=== PATIENT | male | born 1985 | race Caucasian/White ===

== ENCOUNTER 2017-06-12 14:51 | Emergency (ER) | payer SELFPAY ==
--- NOTE | 2017-06-12 15:09 | EDPHY ---
H & P Stated Complaint: L hand lac, hand on glass Source: Patient - Personal History Current Tetanus/Diphtheria Vaccine: Yes Current Tetanus Diphtheria and Acellular Pertussis (TDAP): Yes Tetanus Vaccine Date: 2015 - Medical/Surgical History Hx Asthma: No Hx Chronic Respiratory Disease: No Hx Diabetes: No Hx Cardiac Disease: No Hx Renal Disease: No Hx Cirrhosis: No Hx Alcoholism: No Hx HIV/AIDS: No Hx Splenectomy or Spleen Trauma: No Other PMH: denies - Social History Smoking Status: Current every day smoker Alcohol Use: None Drug Use: None HPI/ROS: CHIEF COMPLAINT: Left hand injury HISTORY OF PRESENT ILLNESS: The patient is 31-year-old male, brought in by EMS, presenting with a left hand injury. The patient was on a ladder, 5 feet above the ground, painting above a window. The ladder came out from under him and he put his hand through the window to try and catch himself. The patient has multiple lacerations to the third and fifth digits. He is unable to move his pinky finger. The patient received Fentanyl prior to arrival. Patient is right hand dominant. He denies other injuries or fall. REVIEW OF SYSTEMS: A ten point review of systems was performed and is negative with the exception of the items mentioned in the HPI. (Dorene Taylor) - Social History Additional Social History: [place] [employer]. (Dorene Taylor) - Physical Exam Exam: General Appearance: Alert. Vital signs reviewed. Head: Normocephalic, atraumatic. Eyes: Pupils equal and round, no conjunctival injection, no discharge. Anicteric. ENT, Mouth: Mucous membranes are moist, no oropharyngeal erythema or edema. Neck: Nontender over cervical spine in the midline. Respiratory: Lungs are clear to auscultation; no wheezes, rales, or rhonchi. Cardiovascular: Regular rate and rhythm; no murmur, rub, or gallop. Gastrointestinal: Abdomen is soft and nontender, no masses or organomegaly, bowel sounds normal. Skin: Warm and dry, no rashes on exposed skin, normal color. Back: Nontender to palpation over the thoracolumbar spine. Extremities: Third finger: Palmar aspect has laceration at the metacarpal proximal phalangeal joint extending across the base of the finger. Normal flexion/extension. Fifth digit: There are two lacerations to the palmar aspect of the finger. See drawing. There is alaceration that is 4cm horizontally along the medial aspect of the finger and extends 3cm vertically onto the palm at the distal flexor crease. Unable to flex fifth digit. Decreased sensation over fifth digit. Full extension of 2nd, 3rd, and 4th digits--normal light touch sensation over these digits. Pulses: 2+ left radial pulse. Neurological: Alert and oriented. Moving all four extremities easily and equally. Psychiatric: Normal affect. (Dorene Taylor) Constitutional: Initial Vital Signs Temperature (C) 36.7 C 06/12/17 14:59 Heart Rate 82 06/12/17 14:59 Respiratory Rate 18 06/12/17 14:59 Blood Pressure 126/74 H 06/12/17 14:59 O2 Sat (%) 95 06/12/17 14:59 O2 Delivery Mode Room Air Allergies/Adverse Reactions: No Known Allergies Allergy (Unverified 06/12/17 14:59) Home Medications: Medication Instructions Recorded NK [No Known Home Meds] 06/12/17 ED Images - Extremities Hands Back Left/Right: 1 - laceration, wraps around to palmar aspect of hand Hands Front Left/Right: 1 - laceration 2 - laceration 3 - laceration 4 - laceration, continguous with #3 Medical Decision Making - Diagnostics Imaging: Discussed imaging studies w/ call circuit worker Radiologist, I viewed and interpreted images myself Procedures: Procedure: Laceration repair #1 Verbal consent was obtained from the patient. 4cm horizontally 3cm vertical laceration on the left pinky. 0.5% bupivacaine use for digital block. The wound was irrigated. The wound was repaired 5-0 Prolene #20 sutures placed The procedure was performed by myself. A dressing was applied by our EMT. Laceration repair #2 1cm laceration on the base of middle finger. 0.5% bupivacaine used for digital block. The wound was irrigated. The wound was repaired using 4-0 chromic gut subcuticular sutures #2 placed, 5-0 Prolene #10 sutures placed. The procedure was performed by myself. A dressing was applied by our EMT. ( Jazmin Ayoub) ED Course/Re-evaluation: Patient presents with multiple lacerations to the palmar aspect of his left hand. He has no flexion to the pinky finger. X-ray imaging is negative for fracture. Possible foreign body seen in the wound. I performed a digital block of the third finger using Xylocaine 1%. Tetanus status was addressed. Plan to have the wound irrigated. The PA, Jazmin Ayoub, performed the laceration repair- -loosely approximating the fifth digit laceration, as it will require surgery. Hand surgeon was paged. There is a flexor tendon injury and possiby a nerve injury (sensation is decreased). These will be addressed surgically. Patient will call his office tomorrow to arrange. Wounds copiously irrigated. No glass or other FB identified. No fracture on Xray. I spoke with who recommends loose approximation of fifth digit/palm laceration and splinting with fingers in flexion. Procedure: Splint placement. A volar splint was applied to the left hand by the tech. After application of the splint I returned and re-examined the patient. The splint was adequately immobilizing the joint and distal to the splint the patient's circulation and sensation was intact. Left fifth digit in flexion. (Dorene Taylor) Differential Diagnosis: DDX includes but is not limited to fracture, dislocation, laceration, tendon injury, nerve injury, vascular injury, retained foreign body. (Dorene Taylor) - Data Points Medications Given: Discontinued Medications Fentanyl (Sublimaze) 25 mcg IVP EDNOW ONE Stop: 06/12/17 18:38 Last Admin: 06/12/17 18:38 Dose: 25 mcg Hydromorphone HCl (Dilaudid) 1 mg IVP EDNOW ONE Stop: 06/12/17 17:01 Last Admin: 06/12/17 18:38 Dose: 1 mg Hydromorphone HCl (Dilaudid) 1 mg IVP EDNOW ONE Stop: 06/12/17 19:51 Last Admin: 06/12/17 20:00 Dose: 1 mg Oxycodone/Acetaminophen (Percocet 5/325) 1 tab PO EDNOW ONE Stop: 06/12/17 17:56 Last Admin: 06/12/17 17:55 Dose: 1 tab Departure - Departure Disposition: Home, Routine, Self-Care Clinical Impression: Hand laceration involving tendon Qualifiers: Encounter type: initial encounter Laterality: left Qualified Code(s): S61.412A - Laceration without foreign body of left hand, initial encounter; S66.922A - Laceration of unspecified muscle, fascia and tendon at wrist and hand level, left hand, initial encounter Condition: Good Instructions: Care For Your Stitches (ED), Laceration (ED), Tendon Laceration ( ED) Additional Instructions: You have been referred to the salesperson sewing machines hand surgeon below. Please call tomorrow to arrange a followup appointment. Call first thing in the morning. Let the office staff know that you have a tendon injury and that Dr. Kidd will be repairing it surgically. Take 600mg Ibuprofen every 6-8 hours while pain persists. Have your sutures removed from your third finger in 10 days. Suture removal is complimentary in the Emergency Department with your visit today. Return to the Emergency Department for fever, redness, discharge from wound, increasing pain or other worsening of condition. Referrals: Ranjith Kidd MD [Medical Doctor] - As per Instructions Report Scribed for: Dorene Taylor Report Scribed by: Mary Carmen Mendoza Date of Report: 06/12/17 Time of Report: 15:56 Physician Review and Approval Statement: 06/12/17 15:09 Portions of this note were transcribed by the center medical and lab director. I, Dr. Dorene Taylor, personally performed the history, physical exam, and medical decision- making; and confirmed the accuracy of the information in the transcribed note. ( Dorene Taylor)
[2017-06-12] MEDS ORDERED: HYDROmorphONE/DILAUDID 1 MG/ML SYR ONE (15:40)
[2017-06-12 16:40] VITALS: RESP 16
[2017-06-12] MEDS ORDERED: HYDROmorphONE/DILAUDID 1 MG/ML SYR IVP ONE ×2 (17:00→19:50)
[2017-06-12] MEDS ORDERED: OXYCODONE/APAP 5/325 TAB ONE (17:48)
[2017-06-12] MEDS ORDERED: OXYCODONE/APAP 5/325 TAB PO ONE (17:55)
[2017-06-12] MEDS ORDERED: fentaNYL 100 MCG/2 ML INJ ONE (18:20)
[2017-06-12] MEDS ORDERED: fentaNYL 100 MCG/2 ML INJ IVP ONE (18:37)
[2017-06-12 20:39] VITALS: BP 114/53; PULSE 75; TEMP 98.2; O2SAT 94
== END 2017-06-12 20:25 | disposition home or self-care (01) ==
LOC: EDBD
PROC: 0HQGXZZ Repair Left Hand Skin, External Approach (ICD-10-PCS; principal; 2017-06-12)
DX: S66.922A Laceration of unspecified muscle, fascia and tendon at wrist and hand level, left hand, initial encounter (principal); F17.200 Nicotine dependence, unspecified, uncomplicated; W26.8XXA Contact with other sharp object(s), not elsewhere classified, initial encounter; Y93.89 Activity, other specified
CPT/HCPCS: 96374; J1170; J3010

== ENCOUNTER 2017-06-16 12:36 | Inpatient (IN) | payer SELFPAY ==
--- NOTE | 2017-06-16 12:43 | EDPHY ---
H & P - Personal History Tetanus Vaccine Date: 2015 - Medical/Surgical History Hx Asthma: No Hx Chronic Respiratory Disease: No Hx Diabetes: No Hx Cardiac Disease: No Hx Renal Disease: No Hx Cirrhosis: No Hx Alcoholism: No Hx HIV/AIDS: No Hx Splenectomy or Spleen Trauma: No Other PMH: denies - Social History Smoking Status: Current every day smoker Time Seen by Provider: 06/16/17 12:40 HPI/ROS: Chief Complaint: Chest pain HPI: 32-year-old male developed chest pain while being arrested at [facility]. Patient states he got very anxious while interact with the police and developed some chest discomfort. Is consistent with prior episodes of anxiety in the past. Patient also states that his girlfriend called police held in that he was suicidal. Patient was placed on M1 hold by the police. Patient was seen here recently after sustaining a laceration to the palm of his hand which required significant repair with resulting tendon damage. Patient denies any new changes with this. He has been taking oxycodone for the pain and has been taking his antibiotic. Denies any fevers or chills. No new redness or discharge. Currently is feeling a very anxious and agitated. ROS: 10 point Review of Systems is negative except as noted in the HPI. PMH: Anxiety, depression Social History: Denies smoking, denies alcohol, no recreational drug use Family History: non-contributory Physical Exam: Gen: Awake, Alert, agitated, pressured speech HEENT: Nose: no rhinorrhea Eyes: PERRLA, EOMI Mouth: Moist mucosa Neck: Supple, no JVD Chest: nontender, lungs clear to auscultation Heart: S1, S2 normal, no murmur Abd: Soft, non-tender, no guarding Back: no CVA tenderness, no midline tenderness Ext: no edema, left hand is in a splint, no erythema, sensations intact Skin: no rash Neuro: CN II-XII intact, Sensation grossly intact, Strength 5/5 in bilateral upper and lower extremities (Kiran Da Silva) Allergies/Adverse Reactions: No Known Allergies Allergy (Unverified 06/12/17 14:59) Home Medications: Medication Instructions Recorded NK [No Known Home Meds] 06/12/17 Medical Decision Making ED Course/Re-evaluation: Patient was medically cleared. No evidence of acute cardiopulmonary process. He is very anxious requires Ativan and also required some Zyprexa here for his agitation. Patient will be seen by mental health for evaluation. IV was anxiety is secondary to his interaction with police. Patient is signed out to Dr. Cao pending mental health evaluation. (Kiran Da Silva) Other Provider: I assumed care of the patient at 14:30. The patient became quite agitated. We verbally attempted to calmed the patient down however this was not successful. The patient received an additional 5 mg of IV Zyprexa. I have medically cleared the patient for psychiatric evaluation. (Eber Cao) - Data Points Laboratory Results: Laboratory Results 06/16/17 12:45 06/16/17 12:45 06/16/17 06/16/17 06/16/17 12:47 12:45 12:45 WBC 8.82 10^3/uL 10^3/uL (3.80-9.50) RBC 4.58 10^6/uL 10^6/uL (4.40-6.38) Hgb 14.2 g/dL g/dL (13.7-17.5) Hct 41.8 % % (40.0-51.0) MCV 91.3 fL fL (81.5-99.8) MCH 31.0 pg pg (27.9-34.1) MCHC 34.0 g/dL g/dL (32.4-36.7) RDW 12.9 % % (11.5-15.2) Plt Count 270 10^3/uL 10^3/uL (150-400) MPV 9.9 fL fL (8.7-11.7) Neut % (Auto) 65.1 % % (39.3-74.2) Lymph % (Auto) 20.5 % % (15.0-45.0) Payette % (Auto) 11.7 % % (4.5-13.0) Eos % (Auto) 1.5 % % (0.6-7.6) Baso % (Auto) 1.0 % % (0.3-1.7) Nucleat RBC Rel Count 0.0 % % (0.0-0.2) Absolute Neuts (auto) 5.74 10^3/uL 10^3/uL (1.70-6.50) Absolute Lymphs (auto) 1.81 10^3/uL 10^3/uL (1.00-3.00) Absolute Monos (auto) 1.03 10^3/uL H 10^3/uL (0.30-0.80) Absolute Eos (auto) 0.13 10^3/uL 10^3/uL (0.03-0.40) Absolute Basos (auto) 0.09 10^3/uL 10^3/uL (0.02-0.10) Absolute Nucleated RBC 0.00 10^3/uL 10^3/uL (0-0.01) Immature Gran % 0.2 % % (0.0-1.1) Immature Gran # 0.02 10^3/uL 10^3/uL (0.00-0.10) Sodium 140 mEq/L mEq/L (134-144) Potassium 3.8 mEq/L mEq/L (3.5-5.2) Chloride 105 mEq/L mEq/L (97-110) Carbon Dioxide 17 mEq/l L mEq/l (22-31) Anion Gap 18 mEq/L H mEq/L (8-16) BUN 14 mg/dL mg/dL (7-23) Creatinine 0.9 mg/dL mg/dL (0.7-1.3) Estimated GFR > 60 Glucose 79 mg/dL mg/dL (70-100) Calcium 9.7 mg/dL mg/dL (8.5-10.4) Urine Opiates Screen NEGATIVE (NEGATIVE) Urine Barbiturates NEGATIVE (NEGATIVE) Ur Phencyclidine Scrn NEGATIVE (NEGATIVE) Ur Amphetamine Screen NEGATIVE (NEGATIVE) U Benzodiazepines Scrn NON-NEGATIVE H (NEGATIVE) Urine Cocaine Screen NEGATIVE (NEGATIVE) U Marijuana (THC) Screen NON-NEGATIVE H (NEGATIVE) Ethyl Alcohol < 10 mg/dL mg/dL (0-10) Medications Given: Discontinued Medications Lorazepam (Ativan Injection) 1 mg IVP EDNOW ONE Stop: 06/16/17 13:28 Last Admin: 06/16/17 13:28 Dose: 1 mg Lorazepam (Ativan Injection) 1 mg IVP EDNOW ONE Stop: 06/16/17 14:18 Last Admin: 06/16/17 14:18 Dose: 1 mg Nicotine (Nicoderm Cq) 21 mg TD EDNOW ONE Stop: 06/16/17 14:35 Last Admin: 06/16/17 14:38 Dose: 21 mg Olanzapine (Zyprexa Im Injection) 5 mg IM EDNOW ONE Stop: 06/16/17 15:21 Last Admin: 06/16/17 15:22 Dose: 5 mg Oxycodone/Acetaminophen (Percocet 5/325) 1 tab PO EDNOW ONE Stop: 06/16/17 13:28 Last Admin: 06/16/17 13:28 Dose: 1 tab Departure - Departure Referrals: Patient,NotPresent [Primary Care Provider] - As per Instructions
[2017-06-16 12:58] LABS: % IMMATURE GRANULYOCYTES 0.2 % (0.0-1.1); ABSOLUTE IMMATURE GRANULOCYTES 0.02 10^3/uL (0.00-0.10); ADD DIFF? NO; ADD MORPH? NO; ADD SCAN? NO; ATYPICAL LYMPHOCYTE FLAG 10 (0-99); FRAGMENT RBC FLAG 0 (0-99); HEMATOCRIT 41.8 % (40.0-51.0); HEMOGLOBIN 14.2 g/dL (13.7-17.5); LEFT SHIFT FLG 0 (0-99); LIPEMIA HEMOLYSIS FLAG 90 (0-99); MEAN CELL VOLUME 91.3 fL (81.5-99.8); MEAN PLATELET VOLUME 9.9 fL (8.7-11.7); PLATELET CLUMPS FLAG 10 (0-99); PLATELET COUNT 270 10^3/uL (150-400); RED BLOOD CELL COUNT 4.58 10^6/uL (4.40-6.38); RED CELL DISTRIBUTION WIDTH 12.9 % (11.5-15.2)
--- NOTE | 2017-06-16 12:58 | CPEKG ---
Heart Rate: 70 RR Interval: 857 P-R Interval: 172 QRSD Interval: 104 QT Interval: 416 QTC Interval: 449 P Rosman: 72 QRS Rosman: 75 T Wave Rosman: 58 EKG Severity - NORMAL ECG - EKG Impression: SINUS RHYTHM Electronically Signed By: Eber Cao 16-Jun-2017 17:29:58
[2017-06-16] MEDS ORDERED: OXYCODONE/APAP 5/325 TAB ONE (13:15)
[2017-06-16] MEDS ORDERED: LORazepam 2 MG/ML INJ ONE (13:15)
[2017-06-16 13:17] LABS: ANION GAP 18 mEq/L (8-16); CALCIUM 9.7 mg/dL (8.5-10.4); CARBON DIOXIDE 17 mEq/l (22-31); CHLORIDE 105 mEq/L (97-110); CREATININE 0.9 mg/dL (0.7-1.3); ETHANOL SERUM < 10 mg/dL (0-10); GLOMERULAR FILTRATION RATE > 60; GLUCOSE 79 mg/dL (70-100); POTASSIUM 3.8 mEq/L (3.5-5.2); SODIUM 140 mEq/L (134-144)
[2017-06-16] MEDS ORDERED: LORazepam 2 MG/ML INJ IVP ONE ×2 (13:27→14:17)
[2017-06-16] MEDS ORDERED: OXYCODONE/APAP 5/325 TAB PO ONE (13:27)
[2017-06-16] MEDS ORDERED: OLANZapine DISINTEGR 5 MG TAB ONE (14:20)
[2017-06-16] MEDS ORDERED: NICOTINE 21 MG/24 HR PATCH TD ONE (14:34)
[2017-06-16] MEDS ORDERED: OLANZapine 10 MG/2 ML VIAL IM ONE ×2 (15:09→15:20)
[2017-06-16 18:34] LABS: PHENCYCLIDINE URINE BCH < 6 ng/ml (NEGATIVE); PHENCYCLIDINE URINE BCH NEGATIVE (NEGATIVE)
[2017-06-16 18:46] LABS: TETRAHYDROCANNABINOL URINE 427 ng/mL (NEGATIVE)
[2017-06-16] MEDS ORDERED: MAG HYDROX/AL HYDROX/SIMETH 30 ML UDCUP PO PRN (23:50)
[2017-06-16] MEDS ORDERED: MAGNESIUM HYDROXIDE 30 ML UDCUP PO PRN (23:50)
[2017-06-16] MEDS ORDERED: LORazepam 0.5 MG TAB PO PRN (23:50)
[2017-06-17 00:17] VITALS: RESP 14
[2017-06-17] MEDS: NICOTINE POLACRILEX 2 MG GUM B PRN ×5 (08:11→21:44)
[2017-06-17] MEDS: OXYCODONE/APAP 5/325 TAB PO PRN ×4 (08:17→20:27)
[2017-06-17] MEDS: SULFAMETHOX/TMP 800/160 MG 1 TAB PO SCH ×3 (09:47→19:56)
[2017-06-17] MEDS: OLANZapine 5 MG TAB PO PRN (09:51)
[2017-06-17] MEDS: clonazePAM 1 MG TAB PO SCH ×2 (11:01→16:26)
[2017-06-17] MEDS: morphINE SR 15 MG TAB PO SCH ×2 (12:58→20:02)
[2017-06-17] MEDS ORDERED: clonazePAM 1 MG TAB PO SCH (16:00)
--- NOTE | 2017-06-17 16:47 | BAPA ---
[f rep st] ADMISSION PSYCHIATRIC ASSESSMENT DATE OF SERVICE: 06/17/2017 CHIEF COMPLAINT: "My girlfriend is just manipulative, I don't need to be here." HISTORY OF PRESENT ILLNESS: Patient is a 32-year-old male with a previous history of atte ntion deficit hyperactivity disorder. He was brought into the hospital due to his girlfriend's conc gorge for his behaviors. He apparently had been acting erratically, had somehow put his hand through a window and severely cut his arm, causing tendon damage that needs to be surgically repaired. He s tates this was an accident as he slipped off a [employer] ladder and fell through the window though the re is some disagreement about that. He also states that he is being harassed by his landlord but [facility] landlord actually has received a restraining order against him. The details of this are murky as well. The patient is unable to give much detail as he is pressured, distracted and states that ever ything is good because he needs to get out of the hospital. He admits to having nowhere to actually go. He cannot describe the events preceding admission, stating he went to [facility] just to get a pair o f flip-flops and that his girlfriend saw him enter the building and called the police for no reason whatsoever. He states the police then apprehended him, brought him to the hospital on an M1 hold al so for no reason whatsoever. The M1 hold states that the patient was acting erratically and that mu ltiple people called the police, though he adamantly denies this. The patient offers no complaints nor does he identify any goals for any mental health treatment of any kind. He states he takes Klon opin 2 mg 3-4 times a day and that is the only medicine he needs. So far in the emergency departmen t and on our unit, he has been quite agitated, pacing, demanding, yelling at times, is intrusive and irritable but then will calm down. He has been generally verbally redirectable though escalates qu ickly. Additional collateral information from his girlfriend states that he has no history of actua l violence but has been collecting knives recently to protect himself from unseen persons or threats . He did make statements to her also about wanting to buy a gun. He has 1 previous episode of over dosing on Klonopin in a suicide attempt. The patient's girlfriend states that he does abuse medicat ions. PAST PSYCHIATRIC HISTORY: Significant for the previous treatment for ADHD. The patient states that he gets the Klonopin through a primary care physician though is unclear who this is or where they a re. I believe it is in [place]. The patient denies previous psychiatric hospitalization. Though did have 2 substance abuse treatment programs on a residential basis that he apparently did not com plete. ALLERGIES: No known medical allergies. CURRENT MEDICATIONS: Clonazepam 2 mg p.r.n. The patient denies any other medications. PAST MEDICAL HISTORY: Significant for the laceration to his right forearm. The patient denies any other significant history. SOCIAL HISTORY: Patient is single though has a girlfriend. He was living in [place], [place], with hazel ling girlfriend most recently though apparently has been evicted and there is a restraining order agai nst him by the [facility]. It is unclear what the status of his relationship with the girlfriend is t jyoti he states that he has been trying to break up with her for some time because "we are on differ ent spiritual paths." The patient's mother lives in [place] and has given some collateral informa tion and states that she believes he may have been diagnosed with bipolar in the past. SUBSTANCE ABUSE HISTORY: Patient states he uses marijuana on a daily basis. He has a past history of heavy cocaine use. FAMILY HISTORY: Noncontributory per patient's report. ADMISSION LABORATORY: CBC is normal. Serum chemistries are normal. Urine drug screen is positive for opiates, benzodiazepines, marijuana. MENTAL STATUS EXAMINATION: Reveals a robust, healthy-appearing male. He is marginally gr oomed and casually dressed. He is quite intense and immediately wants to talk with me about dischar ge. His speech is loud, rapid and pressured. His affect is slightly elevated, irritable, volatile. His mood is described as "messed up." His thought process is tangential at times, linear at other s. His thought content reveals possible paranoia, marginal reality testing. He is alert and orient ed to person, place, time, and situation and his sensorium is clear. There is no evidence of deliri um or intoxication or withdrawal. The patient's intellect appears to be average as evidenced by his educational and occupational histories, fund of knowledge, and vocabulary. He denies thoughts of s uicide, homicide, or violence. His insight and judgment appear to be poor. IMPRESSION: Psychotic disorder, not otherwise specified, possible bipolar beba with psychosis, rec ent injury, relationship conflict, lack of supports, possible homelessness, cannabis use disorder, s evere. The patient is a 32-year-old male who appears to have some beba at this time. It is uncl ear if this is his first clear episode or whether this represents a variation of his normal emotiona l states. He has been acting erratically and has come to the attention of the authorities on severa l occasions. He has caused himself to lose his housing and have an order of protection placed again st him. He has also seriously injured himself with this accident. For these reasons, I think he me ets the definition of grave disability and likely a danger to others as he has placed others in fear of harm. PLAN: 1. Admit to the behavioral health services inpatient unit on an M1 hold. 2. We will monitor his behaviors to determine the exact nature and origin of his symptoms and consi norma treatment with a mood stabilizer. We will provide Zyprexa at this point. The risks, benefits, and alternatives of Zyprexa were discussed with the patient. He voices a hesitance to take medicati ons but states he will "if I absolutely need to.". 3. Will monitor for any aggression, on assault awareness. 4. Estimated length of stay is 5-7 days. 5. /[id number]/MODL
[2017-06-17] MEDS: SENNOSIDES 1 TAB PO SCH (19:56)
--- NOTE | 2017-06-17 22:28 | BCON ---
[f rep st] BEHAVIORAL HEALTH CONSULTATION INTERNAL MEDICINE CONSULTATION DATE OF CONSULTATION: 06/17/2017 REFERRING PHYSICIAN: Alvin Weston MD REASON FOR REFERRAL: Medical clearance for inpatient behavioral health stay. HISTORY OF PRESENT ILLNESS: The patient was brought to the [facility] Emergency Department yesterday on an M1 hold. He had been acting oddly at [employer] in [place]. He maintains that his girlfriend was trying to get him in trouble. He had agitation in the emergency department and was treated with lorazepam and olanzapine. He complained of chest pain in the emergency department and had a normal EKG done. He was previously seen in the emergency department on 06/12/2017 with lacerations to his right hand. He reported he was working on a ladder. The ladder slipped and in trying to stop his fall he put a hand through window. Lacerations include lacerated tendon in the 5th finger. He cannot move the 5th finger, and he is supposed to follow up with orthopedic surgeon, Dr. Kidd, for surgery to repair the tendon laceration. He complains of pain 10/10. He says that 2 Percocets every 4 hours is not sufficient to control the pain. PAST MEDICAL HISTORY: He has history of psychiatric issues including ADD as a child, which was treated with stimulants. He has a history of polysubstance abuse and has had inpatient treatment for that. MEDICATIONS: Prior to admission from his emergency department visit on the , he had prescriptions for Percocet, clonazepam, and Bactrim. PAST SURGICAL HISTORY: Recent laceration repair. SOCIAL HISTORY: He has a girlfriend with whom he lives. He has recently moved to [place] from [place]. He is a heavy smoker. He has a history of polysubstance abuse. FAMILY HISTORY: There is a family history of alcoholism. REVIEW OF SYSTEMS: Other than his complaint of pain, a 10-point review of systems was performed and was negative. PHYSICAL EXAM: VITAL SIGNS: Blood pressure at midnight last night was 99/56, heart rate was 69, respiratory rate was 14, oxygen saturation was 95% on room air, temperature was 36.4 degrees centigrade. His weight is 72.6 kg for a body mass index of 23. GENERAL: This is a well-nourished, well-developed man, appears his chronologic age, cooperative, and in no acute distress. HEENT: Extraocular movements are intact. Pupils are equal, round, and reactive to light. Mucous membranes are moist. Dentition is in good condition. NECK: Supple. CARDIOPULMONARY: Cardiac exam was not performed, nor was pulmonary exam. However, there was no tachypnea and no refractory muscle use. He is not coughing. EXTREMITIES: There was no cyanosis, clubbing, or edema. Right hand has a laceration repair below the metacarpophalangeal joint, digits 3 to 5, and 2 laceration repairs on the 5th digit. They were sutured. There is no erythema , drainage, or dehiscence. There is eschar along the lacerations. He is unable to move the 5th finger of his right hand. He moves all other digits and wrist normally. NEUROLOGIC: He is alert and oriented x3. Cranial nerves 2-12 are grossly intact. There is no focal weakness. Sensation is intact to light touch, and gait is normal. LABORATORY STUDIES: Drawn in the emergency department: CBC was entirely within normal limits. Serum chemistry revealed a low carbon dioxide at 17, and a corresponding anion gap of 18. Otherwise, renal function and electrolytes were within normal limits. Toxicology screen in the serum was negative for ethyl alcohol. In the urine there was detectable opiates and it was non- negative for benzodiazepines as well as marijuana. ASSESSMENT/RECOMMENDATIONS: 1. Psychiatric issues pending further evaluation and management per Psychiatry and the mental health team. 2. Lacerations, status post repair in the emergency department on 06/12/2017. If he is to remain in inpatient rehabilitation for more than a few days, his followup with Orthopedic Surgery should be arranged for him. He complains of inadequate pain control. This is difficult to assess given his history of polysubstance abuse. However, I will go ahead and prescribe extended release morphine 15 mg twice a day and it is hoped that with this prescription he will have less use for Percocet. If he continues to use the maximum dose of Percocet , then increases the likelihood that his opiate use is more related to substance abuse than to pain control. He has been prescribed Bactrim starting on the for infection prophylaxis. There is no sign or symptom of infection. Will address the duration of antibiotics which should not need to be more than 7 days, and please observe for signs or symptoms of infection. 3. Prescribed senna 1 tablet twice daily for constipation as likely to go along with the use of opiates. 4. Tobacco dependence syndrome. Encouraged smoking cessation. 5. History of polysubstance abuse. He might benefit from specific substance abuse counseling. I see no medical contraindications to this patient's continued stay on the inpatient behavioral health unit or to any psychiatric medications or procedures. Thank you very much for including me in the care of this patient, and please do not hesitate to contact me or the hospitalist service should there be need for further medical evaluation. /[id number]/MODL MTDD
[2017-06-18] MEDS: OXYCODONE/APAP 5/325 TAB PO PRN ×4 (02:54→14:18)
[2017-06-18] MEDS: clonazePAM 1 MG TAB PO SCH ×3 (06:51→16:30)
[2017-06-18 06:53] VITALS: PULSE 73
[2017-06-18] MEDS: NICOTINE POLACRILEX 2 MG GUM B PRN ×10 (07:15→20:43)
[2017-06-18] MEDS: SENNOSIDES 1 TAB PO SCH ×2 (08:20→20:16)
[2017-06-18] MEDS: SULFAMETHOX/TMP 800/160 MG 1 TAB PO SCH ×2 (08:20→15:39)
[2017-06-18] MEDS: morphINE SR 15 MG TAB PO SCH ×2 (08:20→20:15)
[2017-06-18] MEDS: OLANZapine 5 MG TAB PO PRN (08:21)
[2017-06-18 15:37] LABS: PHENCYCLIDINE URINE BCH < 6 ng/ml (NEGATIVE); PHENCYCLIDINE URINE BCH NEGATIVE (NEGATIVE); TETRAHYDROCANNABINOL URINE 14 ng/mL (NEGATIVE); TETRAHYDROCANNABINOL URINE NEGATIVE (NEGATIVE)
[2017-06-18] MEDS: ACETAMINOPHEN 325 MG TAB PO PRN (15:40)
[2017-06-18] MEDS: oxyCODONE IR 5 MG TAB PO PRN ×2 (18:18→22:24)
--- NOTE | 2017-06-18 20:35 | SOAPPROG ---
SOAP Progress Note Assessment/Plan: Assessment: Plan: 06/18/17 20:34 Remains pressured, impulsive. Appears to be gravely disable due to his inability to appreciate the nature or severity of his mental illness, appropriately discuss his plan of care or provide reasonably for his basic needs. Will start scheduled Zyprexa at . Subjective: Pt seen, discussed with staff. Remains intrusive, pressured. Clearly smoking MJ in room today, but denies this. I had agreed to meet with him and his friend to discuss d/c plans until this occurred. Objective: Vital Signs Temp Pulse Resp BP Pulse Ox 36.4 C 73 14 121/64 H 94 06/18/17 06:52 06/18/17 06:52 06/18/17 06:52 06/18/17 06:52 06/18/17 06:52 - Time Spent With Patient Time Spent With Patient: 25" ICD10 Worksheet Patient Problems: Problems Problem Status Onset Hand laceration involving tendon Acute
[2017-06-18] MEDS ORDERED: OLANZapine 5 MG TAB PO SCH (21:00)
[2017-06-19] MEDS: oxyCODONE IR 5 MG TAB PO PRN ×3 (05:10→12:54)
[2017-06-19 06:27] VITALS: BP 101/64; TEMP 97.5; O2SAT 96
[2017-06-19] MEDS: clonazePAM 1 MG TAB PO SCH ×2 (06:52→12:39)
[2017-06-19] MEDS: ACETAMINOPHEN 325 MG TAB PO PRN (06:56)
[2017-06-19] MEDS: NICOTINE POLACRILEX 2 MG GUM B PRN ×6 (06:57→12:40)
[2017-06-19] MEDS: morphINE SR 15 MG TAB PO SCH (08:08)
[2017-06-19] MEDS: SENNOSIDES 1 TAB PO SCH (08:08)
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
== END 2017-06-19 14:15 | disposition home or self-care (01) | DRG 885 ==
LOC: EDUNIT# → EDBD 12:36 → BBEH 23:25
PROVIDERS: ADMIT Specialist; ATTEND Specialist
DX: F31.2 Bipolar disorder, current episode manic severe with psychotic features (principal); F17.200 Nicotine dependence, unspecified, uncomplicated; Z59.0 Homelessness; F12.90 Cannabis use, unspecified, uncomplicated
CPT/HCPCS: 80305; 80307; 96374; G0480; J2060

== ENCOUNTER 2017-06-22 18:07 | Emergency (ER) | payer SELFPAY ==
[2017-06-22 18:33] VITALS: BP 107/71; PULSE 76; RESP 19; TEMP 97.7; O2SAT 98
[2017-06-22] MEDS ORDERED: IBUPROFEN 600 MG TAB PO ONE (19:58)
== END 2017-06-22 20:25 | disposition left against medical advice (07) ==
LOC: EDUNIT#
DX: Z53.21 Procedure and treatment not carried out due to patient leaving prior to being seen by health care provider (principal)

== ENCOUNTER 2017-06-28 08:55 | Emergency (ER) | payer MEDICAID ==
[2017-06-28 09:00] VITALS: RESP 16
--- NOTE | 2017-06-28 09:36 | EDPHY ---
H & P Stated Complaint: WANTS L HAND CHECKED, SUTURES IN 16 DAYS HPI/ROS: CHIEF COMPLAINT: Left hand laceration, wants that checked HISTORY OF PRESENT ILLNESS: Patient complains of left hand laceration, pain, weakness and numbness. This happen with a laceration that occurred when denny broke a window on June 12. He was seen here and treated with suture repair. He was referred to Dr. Kidd. He says he was seen by 1 of his partners on the . He is not sure the name of the physician. He is not a with a told him specifically, but he recalls that he was told to see another physician due to lack of insurance. He has not seen anyone yet as he has been attempting to obtain insurance. He now complains of severe pain in the hand, numbness and inability to flex or extend the left pinky. He also complains of suture still in place from the 12 of June. There is partial numbness of the left middle finger. There is no fever chills. No purulence. TIME OF INJURY: June 12 TETANUS STATUS: Updated recently REVIEW OF SYSTEMS: Ten systems reviewed and are negative unless otherwise noted in the HPI EXAMINATION General Appearance: Alert, no distress Head: normocephalic, atraumatic Cardiovascular: Pulses normal throughout. Symmetric radial pulses 2+. Brisk cap refill Neurological: A&O, no sensation of the left pinky in the ulnar aspect. There is intact radial distribution and median distribution. Strength is symmetric in the hands with exception of the left pinky which is completely immobile. Skin: Warm and dry, no rash. There are multiple lacerations on the hand as documented in the previous visit. There is some eschar versus necrosis of the left upper palmar flat. Sutures remain in place. Extremities: Tender to palpation of the left hand entirety. There is flexion extension retained of the 1st 4 fingers. There is no flexion of the pinky. Extension is intact. DIFFERENTIAL DIAGNOSES: Including but not limited to complex laceration, laceration with delayed healing , tendon injury of the flexor apparatus, necrosis MDM: 9:35 a.m. Laceration to the palm of the hand, left middle finger, left pinky finger with tendon injury and possible nerve injury. This occurred 15 days ago. He reports being evaluated on the or 14 of June with the plan for him to return when he has insurance. Patient now has Medicaid insurance and is asking to be evaluated. He does have deficits of the flexor tendons of the left pinky, decreased sensation of the left pinky and left middle fingers. Vital signs are stable. There is eschar versus necrosis of part of the tissue flap on the left palm. 10:00 a.m. We have received documentation of the patient's visit with hand surgeon. He was evaluated by Dr. Pitts on June 14. The record has been scanned into his chart. They discussed the nature of the injury, the recommended surgical care. They are discrepancy based on the patient's stated recurrence of the visit versus the documentation of the visit. I will consult our rehabilitation caseworker to help assist with hand surgery follow-up given the nature of the injury and the chronicity of the injury. 11:30 a.m. Patient has been waiting pending case management evaluation. Case management has been able to obtain an appointment for the patient on with Dr. Bowles. I am awaiting phone call from hand surgeon to confirm that this is an acceptable timeframe. 12:36 p.m. I have discussed the case with Dr. Bowles's registered medical transcriptionist. She discussed the case with Dr. Bowles, and he recommends that the patient be seen in his office as scheduled. They will attempt to changes appointment to an earlier time if able both they will contact the patient should this happen. In the meantime he may keep his appointment on as scheduled by Eva RAMIREZ. 2:20 p.m. I was contacted by Huber from the office of Dr. Bowles. She was inquiring about the patient why he was not referred to the on-call hand surgeon. I informed the patient was not formally fire, thus we referred him back to this established physician. There is some discrepancy as to the status of the patient their office, thus I recommend that she discuss this with the case management nurse. I discussed this with Eva RAMIREZ, and she will contact the office for further assistance. 4:30 p.m. At this time Eva is still attempting to obtain definitive follow up with the patient. Please see her notes. ED Precautions: Worsening pain. Erythema, edema, cyanosis, pallor, paresthesia or anesthesia. SUPERVISION: This patient was independently evaluated without direct examination by the attending physician. Case was discussed with attending physician. Source: Patient Exam Limitations: No limitations - Personal History Current Tetanus Diphtheria and Acellular Pertussis (TDAP): Yes Tetanus Vaccine Date: 2015 - Medical/Surgical History Hx Asthma: No Hx Chronic Respiratory Disease: No Hx Diabetes: No Hx Cardiac Disease: No Hx Renal Disease: No Hx Cirrhosis: No Hx Alcoholism: No Hx HIV/AIDS: No Hx Splenectomy or Spleen Trauma: No Other PMH: denies - Social History Smoking Status: Heavy smoker Constitutional: Initial Vital Signs Temperature (C) 97.5 F 06/28/17 08:57 Heart Rate 72 06/28/17 08:57 Respiratory Rate 16 06/28/17 08:57 Blood Pressure 107/62 06/28/17 08:57 O2 Sat (%) 95 06/28/17 08:57 O2 Delivery Mode Room Air Allergies/Adverse Reactions: No Known Allergies Allergy (Verified 06/22/17 18:31) Home Medications: Medication Instructions Recorded No Known Home Meds 06/28/17 oxyCODONE HCL/ACETAMINOPHEN 1 each PO Q4-6PRN PRN #11 tablet 06/28/17 [Percocet 5-325 mg Tablet] Departure - Departure Disposition: Home, Routine, Self-Care Clinical Impression: Laceration of hand with complication Qualifiers: Encounter type: initial encounter Laterality: left Qualified Code(s): S61.412A - Laceration without foreign body of left hand, initial encounter Injury of flexor tendon of left hand Qualifiers: Encounter type: initial encounter Qualified Code(s): S66.802A - Unspecified injury of other specified muscles, fascia and tendons at wrist and hand level, left hand, initial encounter Condition: Good Instructions: Finger Laceration (ED), Tendon Rupture (ED) Additional Instructions: You have an appointment with Dr. Bowles's Sewer Bricklayer, Jameel, at [facility] on 06/30/17 at 8:30am at their [address] [place] [address] location. Please contact them at [phone] if you need to reschedule or cancel. Remember to bring your Medicaid information with you to the appointment. Referrals: Jose Pitts MD [Medical Doctor] - As per Instructions [facility],. [Primary Care Provider] - As per Instructions Prescriptions: oxyCODONE HCL/ACETAMINOPHEN [Percocet 5-325 mg Tablet] 1 each PO Q4-6PRN PRN # 11 tablet PRN Reason: Pain, Breakthrough
[2017-06-28 12:49] VITALS: BP 105/74; PULSE 80; TEMP 98.4; O2SAT 98
== END 2017-06-28 12:48 | disposition home or self-care (01) ==
DX: Z48.02 Encounter for removal of sutures (principal); F17.200 Nicotine dependence, unspecified, uncomplicated; S61.412D Laceration without foreign body of left hand, subsequent encounter; W25.XXXD Contact with sharp glass, subsequent encounter

== ENCOUNTER 2017-07-01 08:51 | Day surgery (SDC) | payer MEDICAID ==
--- NOTE | 2017-07-01 07:08 | GHP ---
[f rep st] PREOP HISTORY AND PHYSICAL DATE OF ADMISSION: 07/01/2017 DATE OF PLANNED PROCEDURE: 07/01/2017. PREOPERATIVE DIAGNOSES: 1. Flexor tendon lacerations to 5th finger, left hand. 2. Neurovascular injury, 5th finger, left hand. PLANNED PROCEDURE: Flexor tendon repair, neurovascular repair versus amputation of 5th finger. HISTORY: The patient is a 32-year-old male who fell while working on a ladder on June 12, 2017. He went through a single pain glass window sustaining lacerations to his left hand involving multiple fingers. The most involved finger was the 5th finger where he lacerated both superficialis and prof undus tendons as well as the neurovascular bundles on both the radial and ulnar side. On exam in e office on June 30, 2017, skin overlying the volar aspect of the finger was found to be necrotic. The finger itself was dusky. There was diminished sensation to the tip of the finger. No active f lexor function. We have decided to proceed to the operating room for possible repair both of neurov ascular structures as well as flexor tendons versus amputation of the 5th finger. PRIOR MEDICAL HISTORY: Anxiety disorder. SURGICAL HISTORY: None. SOCIAL HISTORY: The patient recently moved here from [place] for work. He has been unable to wor k since his hand injury. No family here. All his family support is in [place]. MEDICATIONS: Percocet. ALLERGIES: No known drug allergies. REVIEW OF SYSTEMS: No shortness of breath, chest pain. Otherwise, review of systems unremarkable. PHYSICAL EXAM: GENERAL: Healthy-appearing 32-year-old male. VITAL SIGNS: He is 5 feet 10 inches tall, weighs 160 pounds. PSYCH: He is alert and oriented x3. HEENT: Normocephalic, atraumatic. Extraocular muscles intact. NECK: Supple. There is no lymphadenopathy. No JVD. CHEST: Clear to auscultation. CARDIOVASCULAR: Regular rate and rhythm. ABDOMEN: Soft, nontender, nondistended. EXTREMITIES: Focusing on his left hand shows a healing laceration over the volar aspect of the pal m extending up into the 5th finger on both the ulnar and radial aspects of these. He also has trans verse lacerations involving the palmar aspect of the long and ring fingers. All lacerations do appe ar to be healing well. No signs of infection. There is a large area of necrotic skin overlying the volar aspect of his hand and finger distal to the laceration. He has absent sensation distal to th e laceration on both sides of the ulnar finger. Sluggish cap refill to the tip of the finger as wel l. It is greater than 3 seconds. His other fingers are less than 1 second. No active flexion of t he 5th finger, and I have difficulty palpating the ends of his tendons down in his hand. IMAGING: [facility]. They do show what sabas ear to be some glass fragments within the finger or retained foreign body. There appear to be 2 of them, possibly a 3rd on the lateral view. ASSESSMENT: Complex left hand injury involving neurovascular structures and tendons. PLAN: The patient and I spent 30 minutes yesterday in the office discussing surgical options for th is finger. I think at this point, it may be even difficult to repair these tendons and get good vas cular coverage for the amount of skin that is already necrotic on the hand. I am concerned, even if we are able to fix the tendon, that it would really give him a nonfunctional finger and he would by pass that finger and not use it, and it would become a painful digit for him. We talked a great jud l about that, and he does not want that. He would like me to try to attempt to repair the tendons i f I think we can get some reasonable function out of the finger. I am concerned about the degree of vascular injury as well as neurovascular compromise on both sides of the finger, and he does unders tand that amputation is a very real possibility with this, so our plan will be to attempt a tendon a nd neurovascular repair once we can assess better the degree of necrosis, if it just involves the sk in or the deeper tissues. He is in agreement with that plan. If we do end up fixing the tendons, I did explain to him it will probably be a 3-6 month recovery with limited use of the hand, at least initially for the 1st 2-3 months with limited work which does also worry him as well, but he is will ing to do that if we think we can get good function out of that finger, so our plan will be n.p.oJossy peterson midnight verónica, surgery at the hospital tomorrow at noon. /[id number]/MODL
[2017-07-01] MEDS ORDERED: ceFAZolin 2 GM/DEXTROSE 100 ML IV ONE (09:43)
[2017-07-01] MEDS ORDERED: LIDOCAINE 1% 2 ML INJ ID PRN (09:51)
[2017-07-01] MEDS ORDERED: LR 1,000 ML IV ONE (09:51)
[2017-07-01] MEDS ORDERED: MIDAZOLAM 2 MG/2 ML VIAL IVP ONE (11:51)
[2017-07-01] MEDS ORDERED: OXYCODONE/APAP 5/325 TAB PO PRN (11:52)
[2017-07-01] MEDS ORDERED: NALOXONE HCL 0.4 MG/ML INJ IVP PRN (11:52)
[2017-07-01] MEDS ORDERED: ACETAMINOPHEN 500 MG TAB PO PRN (11:52)
[2017-07-01] MEDS ORDERED: HYDROCODONE/APAP 5/325 TAB PO PRN (11:52)
[2017-07-01] MEDS ORDERED: HYDROmorphONE/DILAUDID 1 MG/ML SYR IVP PRN (11:52)
[2017-07-01] MEDS ORDERED: ONDANSETRON 4 MG/2 ML VIAL IVP PRN (11:52)
--- NOTE | 2017-07-01 11:53 | PDANEPAE ---
ANE History of Present Illness L Hand ANE Past Medical History - Cardiovascular History Hx Hypertension: No Hx Arrhythmias: No Hx Chest Pain: No Hx Coronary Artery / Peripheral Vascular Disease: No Hx CHF / Valvular Disease: No Hx Palpitations: No - Pulmonary History Hx COPD: No Hx Asthma/Reactive Airway Disease: No Hx Recent Upper Respiratory Infection: No Hx Oxygen in Use at Home: No Hx Sleep Apnea: No Sleep Apnea Screening Result - Last Documented: Negative - Neurologic History Hx Cerebrovascular Accident: No Hx Seizures: No Hx Dementia: No - Endocrine History Hx Diabetes: No - Renal History Hx Renal Disorders: No - Liver History Hx Hepatic Disorders: No - Neurological & Psychiatric Hx Hx Neurological and Psychiatric Disorders: Yes Neurological / Psychiatric History Comment: anxiety - Cancer History Hx Cancer: No - Congenital Disorder History Hx Congenital Disorders: No - GI History Hx Gastrointestinal Disorders: No - Other Health History Other Health History: wears contacts- instructed pt to bring case and solution to remove contacts prior to surgery - Chronic Pain History Chronic Pain: No - Surgical History Prior Surgeries: na ANE Review of Systems Review of systems is: negative - Exercise capacity METS (RN): 4 METS ANE Patient History - Allergies Allergies/Adverse Reactions: No Known Allergies Allergy (Verified 06/30/17 16:52) - Home Medications Home Medications: Percocet 5-325 mg Tablet 07/01/17 [Last Taken 07/01/17 09:00] - NPO status NPO Since - Liquids (Date): 07/01/17 NPO Since - Liquids (Time): 08:00 NPO Since - Solids (Date): 06/30/17 NPO Since - Solids (Time): 23:00 - Smoking Hx Smoking Status: Heavy smoker - Family Anes Hx Family Hx Anesthesia Complications: none ANE Labs/Vital Signs - Vital Signs Blood Pressure: 125/77 Heart Rate: 58 Respiratory Rate: 15 O2 Sat (%): 96 Height: 175.26 cm Weight: 68.039 kg ANE Physical Exam - Airway Neck exam: FROM Mallampati Score: Class 2 Mouth exam: normal dental/mouth exam - Pulmonary Pulmonary: clear to auscultation - Cardiovascular Cardiovascular: regular rate and rhythym - ASA Status ASA Status: I
[2017-07-01] MEDS ORDERED: BACITRACIN 50,000 UNITS/10 ML SYR IRR ONE (11:57)
[2017-07-01] MEDS ORDERED: POLYMYXIN B SULFATE 500,000 UNIT/10 ML SYR IRR ONE (11:57)
[2017-07-01] MEDS ORDERED: PROPOFOL 200 MG/20 ML VIAL ONE (12:35)
[2017-07-01] MEDS ORDERED: fentaNYL 100 MCG/2 ML INJ ONE ×5 (12:35→15:15)
[2017-07-01] MEDS ORDERED: BUPIVACAINE 0.5% 30 ML SDV ONE (13:47)
[2017-07-01] MEDS ORDERED: ONDANSETRON 4 MG/2 ML VIAL ONE (13:54)
[2017-07-01] MEDS ORDERED: DEXAMETHASONE 4 MG/ML VIAL ONE (13:54)
--- NOTE | 2017-07-01 14:03 | POSTOPPROG ---
Post Op Note Date of Operation: 07/01/17 Surgeon: Ranjith Kidd Anesthesiologist: Zoie Anesthesia: GET(General Endotracheal) Pre-op Diagnosis: Laceration 5th finger Post-op Diagnosis: Necrotic/non viable 5th finger Procedure: Amputatrion 5th finger, neurolysis digital nerve radial side ring finger Inf/Abcess present in the surg proc area at time of surgery?: No EBL: Minimal Complications: none
--- NOTE | 2017-07-01 14:06 | POSTANESTH ---
Post Anesthetic Evaluation Cardiovascular Status: Normal, Stable Respiratory Status: Normal, Stable Level of Consciousness/Mental Status: Can Participate in Eval, Alert and Oriented Pain Control: Adequate, Prn Tx Ordered Nausea/Vomiting Control: Adequate, Prn Tx Ordered Complications Possibly Related to Anesthesia: None Noted
[2017-07-01] MEDS: fentaNYL 100 MCG/2 ML INJ IVP PRN ×5 (14:11→15:09)
[2017-07-01] MEDS ORDERED: HYDROmorphONE/DILAUDID 1 MG/ML SYR ONE ×3 (14:22→16:12)
[2017-07-01] MEDS ORDERED: OXYCODONE/APAP 5/325 TAB ONE (14:32)
[2017-07-01] MEDS: HYDROmorphONE/DILAUDID 1 MG/ML SYR IVP PRN ×4 (14:38→15:16)
[2017-07-01] MEDS ORDERED: LORazepam 2 MG/ML INJ ONE (14:59)
[2017-07-01] MEDS: LORazepam 2 MG/ML INJ IVP PRN ×4 (15:05→15:36)
[2017-07-01 15:37] VITALS: TEMP 98.1
[2017-07-01] MEDS ORDERED: HYDROmorphONE/DILAUDID 1 MG/ML SYR IVP ONE (16:12)
[2017-07-01 16:25] VITALS: RESP 13
[2017-07-01 16:51] VITALS: BP 128/78; PULSE 60; O2SAT 95
--- NOTE | 2017-07-01 18:14 | GOP ---
[f rep st] OPERATIVE REPORT DATE OF OPERATION: 07/01/2017 SURGEON: Ranjith Kidd MD ANESTHESIA: Dr. Lino, general. PREOPERATIVE DIAGNOSIS: Laceration 5th finger flexor tendons with neurovascular injury. POSTOPERATIVE DIAGNOSIS: Laceration 5th finger flexor tendons with neurovascular injury. PROCEDURE PERFORMED: FINDINGS: ESTIMATED BLOOD LOSS: Minimal. DESCRIPTION OF PROCEDURE: After appropriate informed consent was obtained, patient was taken to the operating room, placed supine on the operating table. Time-out was performed. Patient was identif ied, correct site was identified, matched with radiographs available in the room. He received 2 g o f Ancef preoperatively. Following the induction of general endotracheal tube anesthesia, left upper extremity prepped and draped in usual sterile fashion. Exsanguinated the limb, inflated the tourni quet to 250 mmHg. Total tourniquet time was 68 minutes. The previous laceration, the sutures were removed and wound was explored. He had an area of area of full-thickness necrosis involving the ent radha dermis overlying the MCP joint extending down over the proximal phalanx of the thumb. Both neur ovascular bundles were cut on both the ulnar and radial side of the 5th finger. The flexor tendons were retracted back in the palm, I could not retrieve them. There were multiple loose glass fragmen ts that I removed. Irrigated the wound. I explored the wound looking for the digital nerves, and t here were really no digital nerve nor the digital arteries could I find those within the field. I d id find the digital nerve on the ulnar side of the ring finger. This was explored. There were shanta ral areas of injury to the nerve. I gently performed a neurolysis cleaning off scar tissue. The ne rve on the ulnar side was intact without scar tissue. The vascular bundle was intact as well. Flex or tendon was without injury to the ring finger. I irrigated the wound further. At this point, I d ecided the 5th finger was nonviable due to the full-thickness necrosis of the tissue so I amputated at the MCP joint leaving a dorsal flap of skin to bring over and cover the volar aspect of the palm. He still had dorsal flow to the skin there. I closed the wound then with 2-0 Vicryl and 3-0 nylon . I instilled 20 mL of 0.5% Marcaine plain around the incision. Sterile dressing was applied, and a volar splint was applied. The patient was awakened from anesthesia, taken to recovery room in sat isfactory condition. There were no immediate intraoperative complications. PROCEDURE PERFORMED: 1. Amputation 5th finger at the metacarpophalangeal joint with neurolysis of digital nerve, ulnar s barbara ring finger. 2. Irrigation debridement of wound palmar aspect, left hand. COMPLICATIONS: None. DRAINS: None. TOTAL TOURNIQUET TIME: 68 minutes at 250 mm Hg. HISTORY: Carlos is a 32-year-old male who on June 12 fell through a single pane window while he w as up on a ladder and sustained a significant injury to his hand involving both flexor tendons and t he neurovascular bundles on both sides of the 5th finger. He had no flexion of the 5th finger. He also had an area of necrosis over the palmar aspect of the finger over the MCP joint and palm of his hand. Decision was made to proceed to the operating room for possible repair of neurovascular stru ctures as well as flexor tendon of the finger versus amputation of the 5th finger. /[id number]/MODL
== END 2017-07-01 16:50 | disposition home or self-care (01) ==
LOC: FSGY 08:51
PROVIDERS: ATTEND Orthopaedic Surgery
PROC: 0X6W0Z0 Detachment at Left Little Finger, Complete, Open Approach (ICD-10-PCS; principal; 2017-07-01 12:15)
DX: S61.227A Laceration with foreign body of left little finger without damage to nail, initial encounter (principal); S64.497A Injury of digital nerve of left little finger, initial encounter; I96 Gangrene, not elsewhere classified; W11.XXXA Fall on and from ladder, initial encounter; W13.4XXA Fall from, out of or through window, initial encounter; F41.9 Anxiety disorder, unspecified
CPT/HCPCS: J0690; J1100; J1170; J2060; J2250; J2405; J2704; J3010